=== PATIENT | male | born 1970 | race Hispanic/Latino ===

== ENCOUNTER 2016-04-18 12:38 | Emergency (ER) | payer OTHER ==
[~2016-04-18] VITALS: Ht 172.7 cm; Wt 70.0 kg
[~2016-04-18 12:38] MED LIST: ONDANSETRON4 MG PO; PREVACID30 M2 PO
[2016-04-18] MEDS ORDERED: LISINOPRIL/HYDR1 TA1 PO (13:06)
[2016-04-18] MEDS ORDERED: FLEXERIL PO (13:55)
[2016-04-18 14:00] VITALS: BP 149/84
== END 2016-04-18 14:00 | disposition home or self-care (01) | DRG 552 ==
LOC: ED 12:38
DX: S16.1XXA Strain of muscle, fascia and tendon at neck level, initial encounter (principal); I10 Essential (primary) hypertension; F17.210 Nicotine dependence, cigarettes, uncomplicated; V89.0XXA Person injured in unspecified motor-vehicle accident, nontraffic, initial encounter; Z98.1 Arthrodesis status